=== PATIENT | female | born 1935 | race Caucasian/White ===

== ENCOUNTER 2018-11-21 10:54 | Outpatient (CLI) | payer MEDICARE, BC, SELFPAY ==
[2018-11-21 12:58] LABS: Abs Immature Grans 0.02 k/cumm (0.0-0.09); Absolute Basophil Count 0.05 k/cumm (0.0-0.2); Absolute Eosinophil Count 0.16 k/cumm (0.0-0.7); Absolute Lymphocyte Count 1.18 k/cumm (1.2-3.4); Absolute Monocyte Count 0.57 k/cumm (0.11-0.7); Absolute Neutrophil Count 6.16 k/cumm (1.2-6.7); Basophils % 0.6; HCT 43.5 % (36.0-46.0); HGB 14.1 g/dL (12.0-15.5); Immature Grans % 0.2; Lymphocytes % 14.5; Mean Corp. HGB Concentration 32.4 g/dL (32.0-36.0); Mean Corpuscular Hemoglobin 27.9 pg (27.0-33.0); Mean Corpuscular Volume 86.1 fL (80-95); Mean Platelet Volume 11.5 fL (8.0-11.0); Neutrophils % 75.7; Platelet Count 260 x1000/uL (130-400); RBC 5.05 m/cumm (4.00-5.20); RBC Distribution Width 13.7 % (11.7-14.6); White Blood Cell Count 8.14 k/cumm (4.4-10.8)
[2018-11-21 13:36] LABS: ALT 20 U/L (12-78); AST 14 U/L (15-37); Albumin 3.5 g/dL (3.4-5.0); Alkaline Phosphatase 102 U/L (46-116); Anion Gap 10.1 mmol/L (3-11); BUN 17 mg/dL (7-18); Bilirubin, Total 0.4 mg/dL (0.2-1.0); C-Reactive Protein 0.13 mg/dL (0.0-0.3); CO2 25.9 mmol/L (21.0-32.0); CREATININE 0.87 mg/dL (0.55-1.02); Calcium 9.3 mg/dL (8.5-10.1); Chloride 110 mmol/L (98-107); Glucose 107 mg/dL (70-100); Potassium 4.1 mmol/L (3.5-5.1); Sodium 146 mmol/L (136-145); Total Protein 6.3 g/dL (6.4-8.2)
[2018-11-21 13:38] LABS: ESR 11 MM/HR (0-30)
== END 2018-11-21 11:14 ==
PROVIDERS: PCP Family Medicine; Visit Provider Family Medicine
DX: R21 Rash and other nonspecific skin eruption (principal); G30.1 Alzheimer's disease with late onset
CPT/HCPCS: 36415; 80053; 85652; 85025; 86140

== ENCOUNTER 2018-12-21 15:24 | Outpatient (REF) | payer MEDICARE, BC, SELFPAY ==
[2018-12-21 15:37] LABS: Bilirubin Negative (Negative); Blood Negative (Negative); Clarity Cloudy (Clear); Glucose Negative (Negative); Ketones Negative (Negative); Leukocyte Esterase Small (Negative); Nitrite Positive (Negative); Urobilinogen 0.2 EU/dL (Up TO 0.2); pH 5.5 (5-8)
[2018-12-21 15:58] LABS: Bacteria Packed HPF (Negative); Epithelial Cells Few HPF (Negative); RBC 0-2 (0-2); WBC 0-2 HPF (0-5)
[2018-12-21 15:59] LABS: C & S Indicated? Yes; Casts Negative LPF (Negative); Crystals Negative HPF (Negative); Mucus Negative (Negative)
== END 2018-12-21 15:44 ==
LOC: LBN 15:24
PROVIDERS: PCP Family Medicine; Visit Provider Family Medicine
DX: R41.82 Altered mental status, unspecified (principal)
CPT/HCPCS: 87077; 81003; 81015; 87086; 87186

== ENCOUNTER 2019-01-14 10:47 | Outpatient (REF) | payer MEDICARE, BC, SELFPAY | END 2019-01-14 11:07 | LOC: NCHCN 10:47 | PROVIDERS: PCP Family Medicine; Visit Provider Family Medicine | DX: N39.0 Urinary tract infection, site not specified (principal) | CPT/HCPCS: 87086 ==

== ENCOUNTER 2019-07-31 16:59 | Emergency (ER) | payer OTHER, MEDICARE, BC, SELFPAY ==
[2019-07-31 17:09] VITALS: BP 183/83; PULSE 65; RESP 16; TEMP 36.7; O2SAT 99
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
== END 2019-07-31 19:55 | disposition home or self-care (01) ==
PROVIDERS: Emergency Provider Student in an Organized Health Care Education/Training Program; PCP Family Medicine
DX: S01.111A Laceration without foreign body of right eyelid and periocular area, initial encounter (principal); V43.62XA Car passenger injured in collision with other type car in traffic accident, initial encounter; G30.9 Alzheimer's disease, unspecified; F02.80 Dementia in other diseases classified elsewhere, unspecified severity, without behavioral disturbance, psychotic disturbance, mood disturbance, and anxiety
CPT/HCPCS: 12011; 90471; 99284; 70450; 70486; 99282

== ENCOUNTER 2019-12-20 10:10 | Outpatient (CLI) | payer MEDICARE, BC, SELFPAY ==
[2019-12-21 19:49] LABS: COVID-19 RT-PCR Result Not Detected ((See Note))
== END 2019-12-20 10:30 ==
PROVIDERS: PCP Family Medicine; Visit Provider Family Medicine
DX: Z11.59 Encounter for screening for other viral diseases (principal)
CPT/HCPCS: U0003

== ENCOUNTER 2021-05-07 21:25 | Outpatient (REF) | payer MEDICARE, BC, SELFPAY ==
[2021-05-10 14:22] LABS: Calcium 9.2 mg/dL (8.5-10.1); Vitamin D 25 Total 40.6 ng/mL (30-100)
[2021-05-10 14:23] LABS: Anion Gap 8.7 mmol/L (3-11); BUN 20 mg/dL (7-18); CO2 25.3 mmol/L (21.0-32.0); CREATININE 0.8 mg/dL (0.55-1.02); Chloride 107 mmol/L (98-107); Glucose 90 mg/dL (74-106); Potassium 4.5 mmol/L (3.5-5.1); Sodium 141 mmol/L (136-145)
== END 2021-05-07 21:26 | disposition home or self-care (01) ==
LOC: LBN 21:25
PROVIDERS: PCP Family Medicine; Visit Provider Internal Medicine
DX: E55.9 Vitamin D deficiency, unspecified (principal)
CPT/HCPCS: 80048; 82306

== ENCOUNTER 2022-10-28 20:59 | Outpatient (REF) | payer MEDICARE, SELFPAY ==
[2022-10-28 21:46] LABS: Vitamin D 25 Total 37.4 ng/mL (30-100)
== END 2022-10-28 21:00 | disposition home or self-care (01) ==
LOC: LBN 20:59
PROVIDERS: Visit Provider Internal Medicine
DX: E55.9 Vitamin D deficiency, unspecified (principal)
CPT/HCPCS: 82306

== ENCOUNTER 2023-02-10 10:26 | Outpatient (REF) | payer MEDICARE, SELFPAY ==
[2023-02-10 10:14] LABS: Albumin 3.4 g/dL (3.4-5.0); Anion Gap 12.5 mmol/L (3-11); BUN 21 mg/dL (7-18); CO2 23.5 mmol/L (21.0-32.0); CREATININE 0.7 mg/dL (0.55-1.02); Calcium 9.4 mg/dL (8.5-10.1); Chloride 111 mmol/L (98-107); Glucose 102 mg/dL (74-106); PHOSPHORUS 3.6 mg/dL (2.6-4.7); Potassium 3.6 mmol/L (3.5-5.1); Sodium 147 mmol/L (136-145)
== END 2023-02-10 10:27 | disposition home or self-care (01) ==
LOC: LBN 10:26
PROVIDERS: Visit Provider Internal Medicine
DX: U07.1 COVID-19 (principal); R79.89 Other specified abnormal findings of blood chemistry
CPT/HCPCS: 80069